=== PATIENT | male | born 2000 | race Caucasian/White ===

== ENCOUNTER 2020-09-28 18:05 | Emergency (ER) | payer BC ==
[2020-09-28 19:39] LABS: #Basophils 0.1 10x3/uL (0.0-0.2); #Eosinphils 0.1 10x3/uL (0.0-0.5); #Monocytes 0.7 10x3/uL (0.0-1.1); #Neutrophils 7.3 10x3/uL (1.5-8.4); %Basophils 0.5 % (0.0-2.0); %Eosinophils 0.5 % (0.0-6.0); %Lymphocytes 24.6 % (18.0-47.0); %Monocytes 6.7 % (0.0-10.0); %Neutrophils 67.4 % (40.0-75.0); Hemoglobin 17.2 g/dL (13.5-17.5); Mean Corpuscular HGB CONC 33.9 g/dL (32.0-36.0); Mean Corpuscular Hemoglobin 30.6 pg (27.0-33.0); Mean Corpuscular Volume 90.1 fl (81.2-95.1); Mean Platelet Volume 9.4 fl (7.4-10.4); Platelet Count 318 10x3/uL (150-450); Red Blood Cell (RBC) Count 5.63 10x6/uL (4.32-5.72); White Blood Cell (WBC) Count 10.8 10x3/uL (3.5-10.5)
[2020-09-28 19:56] LABS: ALT (SGPT) 17 U/L (8-55); AST (SGOT) 18 U/L (10-45); Albumin 4.9 g/dL (3.5-5.0); Alkaline Phosphatase 77 U/L (50-130); Anion Gap 15 mmol/L (10-20); BUN (Urea Nitrogen) 10 mg/dL (8.4-21.0); Bilirubin, Total 0.5 mg/dL (0.2-1.2); Calc. Creatinine Clearance 0 mL/min (70-130); Calcium 9.6 mg/dL (7.8-10.44); Carbon Dioxide 24 mmol/L (22-29); Chloride 104 mmol/L (98-107); Globulin 2.9 g/dL (2.4-3.5); Glucose 106 mg/dL (70-105); Potassium 4.5 mmol/L (3.5-5.1); Protein, Total 7.8 g/dL (6.0-8.3); Sodium 138 mmol/L (136-145)
[2020-09-28] MEDS ORDERED: Ibuprofen 200 MG TAB ONE (22:11)
[2020-09-28] MEDS ORDERED: Acetaminophen 500 MG TAB ONE (22:11)
== END 2020-09-28 22:15 | disposition home or self-care (01) ==
LOC: CSHERS 18:05
DX: R07.9 Chest pain, unspecified (principal)
CPT/HCPCS: 71045; 80053; 84484; 85025; 93005

== ENCOUNTER 2020-09-29 21:30 | Emergency (ER) | payer BC ==
[2020-09-29 22:12] LABS: #Eosinphils 0.1 10x3/uL (0.0-0.5); #Monocytes 0.7 10x3/uL (0.0-1.1); #Neutrophils 7.1 10x3/uL (1.5-8.4); %Basophils 0.4 % (0.0-2.0); %Eosinophils 0.4 % (0.0-6.0); %Lymphocytes 30.1 % (18.0-47.0); %Monocytes 6.1 % (0.0-10.0); %Neutrophils 62.6 % (40.0-75.0); Hemoglobin 17.1 g/dL (13.5-17.5); Mean Corpuscular HGB CONC 33.3 g/dL (32.0-36.0); Mean Corpuscular Hemoglobin 29.7 pg (27.0-33.0); Mean Corpuscular Volume 89.1 fl (81.2-95.1); Mean Platelet Volume 9.7 fl (7.4-10.4); Platelet Count 311 10x3/uL (150-450); RBC Distribution Width 12.2 % (11.5-14.5); Red Blood Cell (RBC) Count 5.76 10x6/uL (4.32-5.72); White Blood Cell (WBC) Count 11.3 10x3/uL (3.5-10.5)
[2020-09-29 22:27] LABS: ALT (SGPT) 15 U/L (8-55); AST (SGOT) 12 U/L (10-45); Albumin 4.9 g/dL (3.5-5.0); Alkaline Phosphatase 76 U/L (50-130); Anion Gap 17 mmol/L (10-20); BUN (Urea Nitrogen) 10 mg/dL (8.4-21.0); Bilirubin, Total 0.8 mg/dL (0.2-1.2); Calc. Creatinine Clearance 0 mL/min (70-130); Carbon Dioxide 24 mmol/L (22-29); Chloride 103 mmol/L (98-107); Globulin 2.9 g/dL (2.4-3.5); Glucose 95 mg/dL (70-105); Potassium 3.7 mmol/L (3.5-5.1); Protein, Total 7.8 g/dL (6.0-8.3); Sodium 140 mmol/L (136-145)
== END 2020-09-29 23:35 | disposition home or self-care (01) ==
LOC: CSHERS 21:30
DX: R55 Syncope and collapse (principal); F41.1 Generalized anxiety disorder
CPT/HCPCS: 70450; 71275; 80053; 84484; 85025; 93005

== ENCOUNTER 2020-10-06 14:05 | Emergency (ER) | payer BC, OTHER | END 2020-10-06 15:15 | disposition home or self-care (01) | LOC: CSHERS 14:05 | DX: R55 Syncope and collapse (principal); V47.5XXA Car driver injured in collision with fixed or stationary object in traffic accident, initial encounter; M54.2 Cervicalgia | CPT/HCPCS: 70450; 72125 ==